=== PATIENT | female | born 1990 | race Caucasian/White ===

== ENCOUNTER 2024-05-26 09:49 | Day surgery (SDC) | payer BC ==
[2024-05-22 12:12] VITALS: BMI 29.2
[2024-05-22 12:59] LABS: Hematocrit 41.2 % (34.9-44.5); Hemoglobin 12.9 g/dL (12.0-15.5); Mean Corpuscular HGB CONC 31.3 g/dL (32.0-36.0); Mean Corpuscular Hemoglobin 28.5 pg (27.0-33.0); Mean Corpuscular Volume 90.9 fL (81.6-98.3); Platelet Count 298 10x3/uL (150-450); RBC Distribution Width 12.4 % (11.5-14.5); Red Blood Cell (RBC) Count 4.53 10x6/uL (3.90-5.03)
[2024-05-22 13:15] LABS: BHCG - Serum Negative (NEGATIVE); Pregs Control Background? CLEAR/WHITE (CLR/WHITE); Pregs Control Bar Appear? YES (CONTROL BAR)
[2024-05-26] MEDS ORDERED: Gabapentin 300 MG CAP ONE (11:59)
[2024-05-26] MEDS ORDERED: Famotidine/PF 20 mg/2ml Vial ONE (11:59)
[2024-05-26] MEDS ORDERED: CeleCOXIB 100 MG CAP ONE (11:59)
[2024-05-26] MEDS ORDERED: Vasopressin 20 UNITS/ML VIAL ONE (12:44)
[2024-05-26] MEDS ORDERED: Bupivacaine HCl 0.5%/Epinephrine 1:200,000/PF 30 ml Vial ONE (12:44)
[2024-05-26] MEDS ORDERED: CEFAZOLIN 2 GM VIAL ONE (12:44)
[2024-05-26] MEDS ORDERED: Ketorolac Tromethamine 30 MG (1 mL) VIAL ONE (12:48)
[2024-05-26] MEDS ORDERED: SUGAMMADEX SODIUM 200 MG/2 ML VIAL ONE (12:48)
[2024-05-26] MEDS ORDERED: Lidocaine 1% PF 5 ML VIAL ONE (12:48)
[2024-05-26] MEDS ORDERED: Ondansetron PF 4 MG/2 ML Vial ONE (12:48)
[2024-05-26] MEDS ORDERED: Rocuronium Bromide 10 MG/ML (10ML VIAL) ONE (12:48)
[2024-05-26] MEDS ORDERED: Dexamethasone 20 MG/5 ML VIAL ONE (12:48)
[2024-05-26] MEDS ORDERED: fentaNYL 50 mcg/mL 1 mL Vial ONE (12:49)
[2024-05-26] MEDS ORDERED: PROPOFOL 20 ML ONE (12:49)
[2024-05-26] MEDS ORDERED: Midazolam HCl 2 mg/2 ml Vial ONE (12:49)
[2024-05-26] MEDS ORDERED: Meperidine HCl/PF 25 MG (1 mL) VIAL ONE (14:50)
[2024-05-26] MEDS ORDERED: HYDROcodone/Acetaminophen 5/325 mg Tablet ONE (15:45)
== END 2024-05-26 17:05 | disposition home or self-care (01) ==
LOC: CSHSDC 09:49
PROVIDERS: ATTEND Obstetrics & Gynecology
PROC: 0UB94ZZ Excision of Uterus, Percutaneous Endoscopic Approach (ICD-10-PCS; principal; 2024-05-26)
DX: D25.9 Leiomyoma of uterus, unspecified (principal)
CPT/HCPCS: 84703; 85027; 86850; 86900; 86901; 88305; J1100; J1885; J2175; J2250; J2405; J2704; J3010; J3490; S2900